=== PATIENT | male | born 1960 | race African-American/Black ===

== ENCOUNTER 2017-08-04 19:46 | Observation (INO) ==
[2017-08-04] MEDS ORDERED: DIPH/TET/ACEL PERT BOOSTER VACCINE 0.5 ML VIAL IM ONE (20:11)
[2017-08-04] MEDS ORDERED: MORPHINE 4 MG/1 ML VIAL IV STA (20:11)
[2017-08-04 21:56] LABS: Basophils # 0.1 10*3/uL (0.0-0.2); Basophils % 0.5 % (0.0-0.8); Eosinophils # 0.1 10*3/uL (0.0-0.87); Eosinophils % 0.7 % (0.00-10.9); Hematocrit 47.2 VOL% (42.0-52.0); Hemoglobin 15.7 GM/DL (14.0-18.0); Immature Granulocytes % 0.4 %; Immature Granulocytes Absolute 0.08 #; Lymphocytes # 4.6 10*3/uL (1.4-4.0); Lymphocytes % 24.2 % (21.2-54.2); Mean Corpuscular HGB Conc 33.3 GM/DL (32-36); Mean Corpuscular Hemoglobin 29 PG (27-34); Mean Corpuscular Volume 88.1 FL (87-102); Mean Platelet Volume 10.4 FL (9.6-12.0); Monocytes # 0.8 10*3/uL (0.11-0.8); Monocytes % 4.4 % (1.7-12.7); Neutrophils # 13.3 10*3/uL (1.4-7.4); Neutrophils % 69.8 % (38.7-73.9); Platelet Count 260 T/CUMM (130-400); Red Blood Count 5.36 MC/CUMM (3.8-5.5); Red Cell Distribution Width 13.2 % (9.3-17.3); White Blood Count 19.1 T/CUMM (4-12)
[2017-08-04] MEDS ORDERED: ERYTHROMYCIN 0.5% OPHT OINT 1 GM TUBE ONE (22:09)
[2017-08-04 23:45] LABS: Alanine Aminotransferase 27 U/L (16-61); Albumin 4.5 G/DL (3.4-5.0); Alkaline Phosphatase 144 U/L (45-117); Aspartate Amino Transferase 23 U/L (0-37); Bilirubin,Total 0.46 MG/DL (0.2-1.0); Blood Urea Nitrogen 12 MG/DL (7-18); Calcium 9.8 MG/DL (8.5-10.1); Glucose 90 MG/DL (74-106); Osmolality,Calculated 280.3 MOS/KG (273-304); Potassium 3.4 MMOL/L (3.5-5.1); Sodium 141 MMOL/L (136-145)
[2017-08-04 23:46] LABS: Amylase 78 U/L (25-115)
[2017-08-05 00:03] LABS: Total Protein 8.5 G/DL (6.4-8.3)
[2017-08-05] MEDS ORDERED: NEOMYCIN/POLYMYXIN/BACITRACIN OINT 28.4 GM TUBE TOP ONE (01:21)
[2017-08-05] MEDS ORDERED: ONDANSETRON 4 MG/2 ML VIAL IV PRN (02:59)
[2017-08-05] MEDS ORDERED: ACETAMINOPHEN 325 MG TABLET PO PRN (02:59)
[2017-08-05 03:18] LABS: Barbiturates Screen,Urine Negative (Negative); Opiate Screen,Urine Positive (Negative); Phencyclidine Screen,Urine Negative (Negative)
[2017-08-05 03:19] LABS: Benzodiazepines Screen,Urine Negative (Negative); Cannabinoid Screen,Urine Negative (Negative)
[2017-08-05] MEDS: MORPHINE 4 MG/1 ML VIAL IV PRN ×2 (03:35→10:14)
[2017-08-05] MEDS: SODIUM CHLORIDE 0.9% 1,000 ML IV SCH ×2 (03:40→21:46)
[2017-08-05] MEDS: ceFAZolin 1,000 MG in SYRINGE 1 EACH IV SCH ×3 (06:42→21:46)
[2017-08-05] MEDS ORDERED: amLODIPine 5 MG TABLET PO SCH (09:00)
[2017-08-05] MEDS ORDERED: LOVASTATIN 20 MG TABLET PO SCH (09:00)
[2017-08-05] MEDS: ASPIRIN EC 81 MG TABLET PO SCH (09:28)
[2017-08-05] MEDS: PANTOPRAZOLE 40 MG VIAL IV SCH (10:15)
[2017-08-05] MEDS ORDERED: LIDOCAINE 1%/EPI INJ 20 ML VIAL ONE (10:40)
[2017-08-05] MEDS ORDERED: BACITRACIN OPH OINT 3.5 GM TUBE ONE (12:53)
[2017-08-05] MEDS ORDERED: LIDOCAINE 1% 5 ML VIAL ONE (14:32)
[2017-08-05] MEDS ORDERED: PROPOFOL 200 MG/20 ML VIAL IV ONE (14:32)
[2017-08-05] MEDS ORDERED: SEVOFLURANE 1 UNIT/15 MINUTE INH ONE (14:32)
[2017-08-05] MEDS ORDERED: ONDANSETRON 4 MG/2 ML VIAL ONE (14:33)
[2017-08-05] MEDS ORDERED: GLYCOPYRROLATE 0.4 MG/2 ML VIAL ONE (14:33)
[2017-08-05] MEDS ORDERED: ROCURONIUM 100 MG/10 ML VIAL IV ONE (14:33)
[2017-08-05] MEDS ORDERED: SUCCINYLCHOLINE 200 MG/10 ML VIAL ONE (14:33)
[2017-08-05] MEDS ORDERED: fentaNYL 100 MCG/2 ML VIAL ONE (14:33)
[2017-08-05] MEDS ORDERED: MIDAZOLAM 2 MG/2 ML VIAL ONE (14:33)
[2017-08-05] MEDS ORDERED: SODIUM CHLORIDE 0.9% 100 ML IV ONE (14:33)
[2017-08-05] MEDS ORDERED: PHENYLEPHRINE 10 MG/1 ML VIAL IV ONE (14:33)
[2017-08-05] MEDS: BACITRACIN OINT 0.9 GM PACK TOP SCH (16:24)
[2017-08-06 01:13] LABS: Apearance,Urine CLEAR (Clear); Bilirubin,Urine Negative (Negative); Blood, Urine Negative (Negative); Glucose,Urine (UA) Negative (Negative); Ketones,Urine 5 mg/dL (Negative); Mucus,Urine Occasional /LPF (Occasional); Nitrite,Urine Negative (Negative); Protein,Urine Negative; RBC,Urine 1 /HPF (0-4); Urine Color Yellow (Yellow); Urine Specific Gravity 1.016 (1.001-1.035); Urine Urobilinogen < 2.0 EU/DL (0.2-1.0); WBC,Urine 1 /HPF (0-6)
[2017-08-06] MEDS: ceFAZolin 1,000 MG in SYRINGE 1 EACH IV SCH ×2 (05:23→15:51)
[2017-08-06] MEDS: ASPIRIN EC 81 MG TABLET PO SCH (10:28)
[2017-08-06] MEDS: PANTOPRAZOLE 40 MG VIAL IV SCH (10:29)
[2017-08-06] MEDS: BACITRACIN OINT 0.9 GM PACK TOP SCH (10:35)
[2017-08-06 16:42] VITALS: BP 144/87
== END 2017-08-06 17:08 | disposition home or self-care (01) ==
LOC: EDUNIT# → N.ED 19:46 → N.EDINP 08-05 00:27 → INTOOBSV 08-05 00:27 → N.3E 08-05 01:52
PROVIDERS: ADMIT Otolaryngology; ATTEND Otolaryngology

== ENCOUNTER 2020-04-17 05:06 | Inpatient (IN) ==
[2020-04-17] MEDS ORDERED: HYDROmorphone 2 MG/1 ML VIAL ONE (05:22)
[2020-04-17] MEDS ORDERED: PANTOPRAZOLE 40 MG VIAL IV STA (05:22)
[2020-04-17] MEDS ORDERED: ONDANSETRON 4 MG/2 ML VIAL ONE (05:22)
[2020-04-17] MEDS ORDERED: ONDANSETRON 4 MG/2 ML VIAL IV STA (05:22)
[2020-04-17] MEDS ORDERED: SODIUM CHLORIDE 0.9% 500 ML IV STA (05:22)
[2020-04-17] MEDS ORDERED: ALUM/MAG/SIMETH/LIDO VISC 1:1 30 ML BOTTLE PO STA (05:22)
[2020-04-17] MEDS ORDERED: HYDROmorphone 2 MG/1 ML VIAL IV STA ×2 (05:22→06:39)
[2020-04-17 05:29] LABS: Basophils # 0.1 10*3/uL (0.0-0.2); Basophils % 0.2 % (0.0-0.8); Eosinophils # 0.1 10*3/uL (0.0-0.87); Eosinophils % 0.4 % (0.00-10.9); Hematocrit 51.2 VOL% (42.0-52.0); Hemoglobin 16.2 GM/DL (14.0-18.0); Immature Granulocytes % 0.5 %; Immature Granulocytes Absolute 0.11 #; Lymphocytes # 14.1 10*3/uL (1.4-4.0); Lymphocytes % 58.8 % (21.2-54.2); Mean Corpuscular HGB Conc 31.6 GM/DL (32-36); Mean Corpuscular Volume 92.4 FL (87-102); Mean Platelet Volume 9.9 FL (9.6-12.0); Monocytes % 5.6 % (1.7-12.7); Neutrophils % 34.5 % (38.7-73.9); Platelet Count 348 T/CUMM (130-400); Red Blood Count 5.54 MC/CUMM (3.8-5.5); Red Cell Distribution Width 12.9 % (9.3-17.3)
[2020-04-17 05:53] LABS: Albumin 3.5 G/DL (3.4-5.0); Bilirubin,Total 0.6 MG/DL (0.2-1.0); Calcium 9.1 MG/DL (8.5-10.1); Osmolality,Calculated 281.3 MOS/KG (273-304); Potassium 3.7 MMOL/L (3.5-5.1); Total Protein 7.3 G/DL (6.4-8.3)
[2020-04-17] MEDS ORDERED: fentaNYL 100 MCG/2 ML VIAL IV STA (05:53)
[2020-04-17] MEDS ORDERED: SODIUM CHLORIDE 0.9% 1,000 ML IV STA (05:53)
[2020-04-17 06:03] LABS: Lymphocytes 53 % (20-55); Platelet Estimate Normal; Segmented Neutrophils 40 % (50-85); Smudge Cells Few; Total Cells Counted 100
[2020-04-17 06:04] LABS: Anisocytosis 1+; Macrocytosis 1+
[2020-04-17] MEDS ORDERED: PIPERACILLIN/TAZOBACTAM 3,375 MG in SODIUM CHLORIDE 0.9% 100 ML IV STA (06:35)
[2020-04-17] MEDS ORDERED: cefOXitin 2,000 MG in SYRINGE 1 EACH IV ONE (07:16)
[2020-04-17 07:21] LABS: Bacteria,Urine Occasional /HPF (Few); Bilirubin,Urine Negative (Negative); Blood, Urine Negative (Negative); Glucose,Urine (UA) Negative (Negative); Ketones,Urine Negative (Negative); Mucus,Urine Occasional /LPF (Occasional); Nitrite,Urine Negative (Negative); Protein,Urine Negative; RBC,Urine <1 /HPF (0-4); Urine Appearance CLEAR (Clear); Urine Color Straw (Yellow); Urine Specific Gravity 1.034 (1.001-1.035); Urine Urobilinogen < 2.0 EU/DL (0.2-1.0)
[2020-04-17] MEDS ORDERED: TISSUE ADHESIVE 1 EACH APPLICATOR TOP ONE (07:36)
[2020-04-17] MEDS ORDERED: BUPIVACAINE MPF 0.25% 30 ML VIAL ONE (07:36)
[2020-04-17] MEDS ORDERED: LIDOCAINE 1%/EPI INJ 20 ML VIAL ONE (07:36)
[2020-04-17] MEDS ORDERED: MIDAZOLAM 2 MG/2 ML VIAL ONE ×2 (07:50→10:20)
[2020-04-17] MEDS ORDERED: fentaNYL 100 MCG/2 ML VIAL ONE (07:50)
[2020-04-17] MEDS ORDERED: ALBUMIN 5% 12.5 GM/250 ML VIAL IV ONE (08:02)
[2020-04-17] MEDS ORDERED: ePHEDrine 50 MG/ML VIAL ONE (08:05)
[2020-04-17] MEDS ORDERED: LIDOCAINE 2% 5 ML VIAL ONE ×2 (08:12→10:19)
[2020-04-17] MEDS ORDERED: ETOMIDATE 40 MG/20 ML VIAL IV ONE (08:12)
[2020-04-17] MEDS ORDERED: methylPREDNISolone SOD SUC 125 MG/2 ML VIAL ONE (08:12)
[2020-04-17] MEDS ORDERED: ROCURONIUM 50 MG/5 ML VIAL IV ONE ×2 (08:12→10:20)
[2020-04-17] MEDS ORDERED: SUCCINYLCHOLINE 200 MG/10 ML VIAL ONE ×2 (08:12→10:19)
[2020-04-17] MEDS ORDERED: propofoL 200 MG/20 ML VIAL IV ONE ×2 (08:12→10:19)
[2020-04-17] MEDS ORDERED: SEVOFLURANE 1 UNIT/15 MINUTE INH ONE ×5 (08:37→09:23)
[2020-04-17] MEDS ORDERED: SUGAMMADEX 200 MG/2 ML VIAL IV ONE (08:41)
[2020-04-17] MEDS ORDERED: LACTATED RINGERS 2,000 ML IV ONE (08:46)
[2020-04-17 10:09] LABS: ABG Base Excess -1.5 MMOL/L (-2.5-2.5); ABG Oxygen Saturation 92.9 % (95-100); ABG PH 7.212 (7.35-7.45); ABG PO2 79.3 MM HG (80-95); ABG TCO2 25.9 MMOL/L (23-27); Allen Test Positive; Pt O2 Delivery Device Simple Mask
[2020-04-17 10:12] LABS: ABG PCO2 72.5 MM HG (35-48)
[2020-04-17] MEDS ORDERED: ONDANSETRON 4 MG/2 ML VIAL IV PRN (11:21)
[2020-04-17] MEDS ORDERED: HYDROmorphone 2 MG/1 ML VIAL IV PRN (11:21)
[2020-04-17] MEDS ORDERED: PROMETHAZINE 25 MG/1 ML VIAL IM PRN (11:21)
[2020-04-17 11:35] LABS: ABG Base Excess 0.3 MMOL/L (-2.5-2.5); ABG HCO3 24.6 MMOL/L (20-26); ABG Oxygen Saturation 94.4 % (95-100); ABG PCO2 54.8 MM HG (35-48); ABG PH 7.317 (7.35-7.45); ABG PO2 75.2 MM HG (80-95); Allen Test Positive; Pt O2 Delivery Device Ventilator
[2020-04-17] MEDS: AMOXICILLIN 500 MG CAPSULE PO SCH ×2 (12:08→21:23)
[2020-04-17] MEDS: CLARITHROMYCIN 500 MG TABLET PO SCH ×2 (12:08→21:23)
[2020-04-17] MEDS: LACTATED RINGERS 1,000 ML IV SCH ×2 (12:08→20:10)
[2020-04-17] MEDS: PANTOPRAZOLE 40 MG TABLET PO SCH ×2 (12:09→21:23)
[2020-04-17 12:32] LABS: Basophils % 0.1 % (0.0-0.8); Hematocrit 49.2 VOL% (42.0-52.0); Hemoglobin 15.2 GM/DL (14.0-18.0); Immature Granulocytes % 0.3 %; Immature Granulocytes Absolute 0.08 #; Lymphocytes # 6.2 10*3/uL (1.4-4.0); Mean Corpuscular HGB Conc 30.9 GM/DL (32-36); Mean Corpuscular Volume 95.5 FL (87-102); Mean Platelet Volume 10.5 FL (9.6-12.0); Neutrophils % 67.6 % (38.7-73.9); Red Blood Count 5.15 MC/CUMM (3.8-5.5); Red Cell Distribution Width 13.1 % (9.3-17.3); White Blood Count 22.9 T/CUMM (4-12)
[2020-04-17 12:42] LABS: Calcium 8.6 MG/DL (8.5-10.1); Osmolality,Calculated 274.7 MOS/KG (273-304); Platelet Count 178 T/CUMM (130-400); Potassium 3.7 MMOL/L (3.5-5.1)
[2020-04-17 12:56] LABS: Anisocytosis 1+; Band Neutrophils 14 % (0-10); Lymphocytes 26 % (20-55); Macrocytosis 1+; Platelet Estimate Normal; Segmented Neutrophils 58 % (50-85); Total Cells Counted 100
[2020-04-17] MEDS ORDERED: niCARdipine INJ 25 MG in SODIUM CHLORIDE 0.9% 240 ML IV PRN (13:58)
[2020-04-17] MEDS: methylPREDNISolone SOD SUC 40 MG/1 ML VIAL IV SCH (17:08)
[2020-04-17] MEDS: ALBUTEROL/IPRATROPIUM 3 ML NEB RESP TX SCH (18:51)
[2020-04-18] MEDS: ALBUTEROL/IPRATROPIUM 3 ML NEB RESP TX SCH ×4 (00:10→19:38)
[2020-04-18] MEDS: LACTATED RINGERS 1,000 ML IV SCH ×2 (04:10→12:11)
[2020-04-18 04:42] LABS: ABG HCO3 28.9 MMOL/L (20-26); ABG Oxygen Saturation 98.6 % (95-100); ABG PCO2 45.5 MM HG (35-48); ABG TCO2 25.9 MMOL/L (23-27); Allen Test Positive; Pt O2 Delivery Device Ventilator
[2020-04-18] MEDS: methylPREDNISolone SOD SUC 40 MG/1 ML VIAL IV SCH (05:05)
[2020-04-18] MEDS: ENOXAPARIN 40 MG/0.4 ML SYRINGE SUBCUT SCH (05:18)
[2020-04-18 06:53] LABS: Basophils % 0.1 % (0.0-0.8); Hemoglobin 13.4 GM/DL (14.0-18.0); Immature Granulocytes % 0.5 %; Lymphocytes # 5.4 10*3/uL (1.4-4.0); Lymphocytes % 27.6 % (21.2-54.2); Mean Corpuscular HGB Conc 32.7 GM/DL (32-36); Mean Corpuscular Volume 89.9 FL (87-102); Monocytes % 4.4 % (1.7-12.7); Neutrophils % 67.4 % (38.7-73.9); Red Blood Count 4.56 MC/CUMM (3.8-5.5); Red Cell Distribution Width 12.8 % (9.3-17.3); White Blood Count 19.6 T/CUMM (4-12)
[2020-04-18 07:02] LABS: Calcium 8.9 MG/DL (8.5-10.1); Osmolality,Calculated 286.8 MOS/KG (273-304); Potassium 3.7 MMOL/L (3.5-5.1)
[2020-04-18 07:08] LABS: Platelet Count 248 T/CUMM (130-400)
[2020-04-18 07:24] LABS: Platelet Estimate Adequate
[2020-04-18] MEDS: CLARITHROMYCIN 500 MG TABLET PO SCH ×2 (08:38→21:02)
[2020-04-18] MEDS: AMOXICILLIN 500 MG CAPSULE PO SCH ×2 (08:38→21:01)
[2020-04-18] MEDS: PANTOPRAZOLE 40 MG VIAL IV SCH ×2 (08:40→21:02)
[2020-04-18] MEDS ORDERED: ATORVASTATIN 40 MG TABLET PO SCH (21:00)
[2020-04-19] MEDS: ALBUTEROL/IPRATROPIUM 3 ML NEB RESP TX SCH ×2 (01:17→07:08)
[2020-04-19] MEDS: ENOXAPARIN 40 MG/0.4 ML SYRINGE SUBCUT SCH (05:08)
[2020-04-19 06:11] LABS: Basophils % 0.2 % (0.0-0.8); Hematocrit 43.1 VOL% (42.0-52.0); Hemoglobin 13.6 GM/DL (14.0-18.0); Immature Granulocytes % 0.6 %; Immature Granulocytes Absolute 0.14 #; Lymphocytes # 7.3 10*3/uL (1.4-4.0); Lymphocytes % 31.1 % (21.2-54.2); Mean Corpuscular HGB Conc 31.6 GM/DL (32-36); Mean Corpuscular Volume 92.9 FL (87-102); Neutrophils % 63.1 % (38.7-73.9); Platelet Count 296 T/CUMM (130-400); Red Blood Count 4.64 MC/CUMM (3.8-5.5); Red Cell Distribution Width 12.8 % (9.3-17.3); White Blood Count 23.3 T/CUMM (4-12)
[2020-04-19 06:31] LABS: Albumin 2.8 G/DL (3.4-5.0); Bilirubin,Total 0.9 MG/DL (0.2-1.0); Calcium 9.5 MG/DL (8.5-10.1); Osmolality,Calculated 283.1 MOS/KG (273-304); Potassium 3.7 MMOL/L (3.5-5.1); Total Protein 6.6 G/DL (6.4-8.3)
[2020-04-19 06:39] LABS: Lymphocytes 19 % (20-55); Platelet Estimate Normal; Segmented Neutrophils 78 % (50-85); Total Cells Counted 100
[2020-04-19 08:04] VITALS: BP 151/78
[2020-04-19] MEDS: PANTOPRAZOLE 40 MG VIAL IV SCH (08:52)
[2020-04-19] MEDS: CLARITHROMYCIN 500 MG TABLET PO SCH (08:52)
[2020-04-19] MEDS: AMOXICILLIN 500 MG CAPSULE PO SCH (08:52)
[2020-04-19] MEDS ORDERED: ASPIRIN EC 81 MG TABLET PO SCH (09:00)
[2020-04-19] MEDS ORDERED: amLODIPine 5 MG TABLET PO SCH (09:00)
[2020-04-24] MEDS ORDERED: cloNIDine 0.3 MG/24 HR PATCH TRANSDERM SCH (14:00)
== END 2020-04-19 11:55 | disposition home or self-care (01) | DRG 329 ==
LOC: N.ED 05:06 → N.ICU 07:48 → N.EDINP 08:57 → N.ICU 11:10 → N.3E 04-18 18:01
PROVIDERS: ADMIT Surgery; ATTEND Surgery